=== PATIENT | male | born 2000 | race African-American/Black ===

== ENCOUNTER 2021-11-01 19:10 | Emergency (ER) | payer MEDICAID ==
[~2021-11-01] VITALS: Ht 177.8 cm; Wt 70.7 kg
[2021-11-02] MEDS ORDERED: BACITRACIN ZINC OINT UDPKT TOP ONE (00:15)
[2021-11-02] MEDS ORDERED: TETANUS, DIPHTHERIA, PERTUSSIS VAC/PF 0.5ML (>10YR OLD) IM ONE (00:15)
[2021-11-02] MEDS ORDERED: LIDOCAINE HCL/PF 1% 10 MG/ML 5ML VIAL INFIL ONE (00:15)
[2021-11-02] MEDS ORDERED: IBUP-2029 PO (01:44)
[2021-11-02 02:26] VITALS: BP 127/73
== END 2021-11-02 02:27 | disposition home or self-care (01) ==
LOC: ER 19:10
DX: S61.012A Laceration without foreign body of left thumb without damage to nail, initial encounter (principal); W22.8XXA Striking against or struck by other objects, initial encounter; Y93.89 Activity, other specified; Y92.018 Other place in single-family (private) house as the place of occurrence of the external cause
CPT/HCPCS: 73140; 90471; 90715; 99283